=== PATIENT | male | born 1950 | race Caucasian/White ===

== ENCOUNTER 2017-08-27 15:40 | Emergency (ER) | payer MEDICARE, BC ==
[2017-08-27 15:50] VITALS: TEMP 98
[2017-08-27] MEDS ORDERED: SODIUM CHLORIDE 0.9% 1000ML 1,000 ML IV ONE (15:51)
[2017-08-27] MEDS ORDERED: TDAP VACCINE 0.5 ML SUS IM ONE (15:53)
[2017-08-27 15:55] LABS: HEMATOCRIT 40 % (39-53); HEMOGLOBIN 13.4 gm/dl (13.5-17.7); MEAN CORPUSCULAR HEMOGLOBIN 31.3 pg (27.0-32.0); MEAN CORPUSCULAR HGB CONC 33.9 gm/dl (32.0-36.0); MEAN CORPUSCULAR VOLUME 92 fL (80-100)
[2017-08-27 16:11] LABS: ALBUMIN 3.4 gm/dl (3.4-5.0); ALKALINE PHOSPHATASE 69 IU/L (46-116); ALT 23 IU/L (14-63); AST 14 IU/L (15-37); BILIRUBIN,TOTAL 0.5 mg/dl (0.2-1.0); BLOOD UREA NITROGEN 15 mg/dl (7-18); CALCIUM 8.6 mg/dl (8.5-10.1); CARBON DIOXIDE 26.9 mEq/L (21-32); CHLORIDE 103 mMol/L (98-107); GLOM FILT RATE 66 mL/min (>60); GLUCOSE 108 mg/dl (74-106); POTASSIUM 3.6 mMol/L (3.5-5.1); SODIUM 141 mMol/L (136-145); TOTAL PROTEIN 6.8 gm/dl (6.4-8.2); TROP I < 0.017 ng/ml (0.000-0.056)
[2017-08-27] MEDS ORDERED: LIDOCAINE 1% W/EPI MPF 30 ML SOL SC ONE (16:21)
[2017-08-27] MEDS ORDERED: LIDOCAINE 1% W/EPI MPF 30 ML SOL ONE (16:22)
[2017-08-27 16:32] LABS: ANISOCYTOSIS SLIGHT; BAND NEUTROPHILS % (MANUAL) 0 %; BASOPHILS % (MANUAL) 0 % (0-3); EOSINOPHILS % (MANUAL) 1 % (0-9); LYMPHOCYTES % (MANUAL) 28 % (10-50); MONOCYTES % (MANUAL) 9 % (0-12); NEUTROPHILS % (MANUAL) 62 % (37-80)
[2017-08-27 17:37] VITALS: O2SAT 100
[2017-08-27 17:38] VITALS: BP 141/81; PULSE 89; RESP 16
[2017-08-27 17:44] LABS: APPEARANCE,URINE Clear; BILIRUBIN,URINE NEGATIVE (NEGATIVE); COLOR,URINE Light yellow; GLUCOSE, URINE (UA) NEGATIVE (NEGATIVE); KETONES,URINE NEGATIVE (NEGATIVE); LEUKOCYTE ESTERASE ,URINE NEGATIVE (NEGATIVE); NITRATE,URINE NEGATIVE (NEGATIVE); OCCULT BLOOD,URINE TRACE INTACT (NEG-TRACE); PH,URINE 6.5; UROBILINOGEN,URINE 0.2 (0.2-1.0 EU)
[2017-08-27 17:56] LABS: BACTERIA TRACE (< 1+); CRYSTALS NEGATIVE (0-3 AVE/HPF); EPITHELIAL CELLS 0-1 (SQUAMOUS); RBC,URINE 0-1 (0-3AV/HPF); WBC,URINE NEG (0-5AV/HPF)
[2017-08-27] MEDS ORDERED: BACITRACIN 500 U/GM OIN TOP ONE ×2 (18:18)
== END 2017-08-27 18:34 | disposition home or self-care (01) | DRG 312 ==
LOC: ED 15:40
DX: R55 Syncope and collapse (principal); S01.81XA Laceration without foreign body of other part of head, initial encounter
CPT/HCPCS: 12013; 71045; 80053; 81001; 84484; 85007; 85027; 93005; 96365; 99284; 99285; A6402; A9270-GY